=== PATIENT | female | born 1970 | race Caucasian/White ===

== ENCOUNTER 2017-08-24 08:16 | Day surgery (SDC) | payer MEDICAID ==
[~2017-08-24] VITALS: Ht 168.9 cm; Wt 81.8 kg
[~2017-08-24 08:16] MED LIST: SODIUM CHLORIDE 0.9% 1,000 ML IV ONE
[2017-08-24] MEDS ORDERED: PROPOFOL 1% 20 ML VIAL IVP ONE (08:17)
[2017-08-24] MEDS ORDERED: LIDOCAINE HCL/PF 2% 5 ML VIAL IM ONE (08:17)
[2017-08-24] MEDS ORDERED: ONDANSETRON HCL 4 MG/2 ML VIAL IVP ONE (08:17)
[2017-08-24] MEDS ORDERED: EPINEPHrine 1:10,000 [1 MG/10 ML] SYRINGE ONE (08:42)
== END 2017-08-24 11:40 | disposition home or self-care (01) ==
LOC: SURGERY 08:16
PROVIDERS: ATTEND Internal Medicine Gastroenterology
DX: K64.1 Second degree hemorrhoids (principal); K64.4 Residual hemorrhoidal skin tags; Z91.041 Radiographic dye allergy status; Z98.890 Other specified postprocedural states
CPT/HCPCS: 45378; 84703; J2405; J2704; J3490; J7030; J0171